=== PATIENT | female | born 1940 | race Caucasian/White ===

== ENCOUNTER 2021-11-07 12:12 | Emergency (ER) | payer BC ==
[~2021-11-07] VITALS: Ht 154.9 cm; Wt 78.5 kg
[2021-11-07] MEDS ORDERED: IV NORMAL SALINE 1000 ML BAG IV ONE ×2 (12:30)
[2021-11-07 12:44] LABS: HEMATOCRIT 38.2 % (31.2-41.9); MEAN CORPUSCULAR HEMOGLOBIN 30.4 uug (24.7-32.8); PLATELET COUNT (AUTO) 256 K/uL (179-408)
[2021-11-07 12:46] LABS: CARBON DIOXIDE 28 mmol/L (21-32); CHLORIDE 105 mmol/L (98-107); CREATININE 0.7 mg/dL (0.6-1.3); GLUCOSE 136 mg/dL (74-106); UREA NITROGEN, BLOOD 15 mg/dL (7-18)
[2021-11-07 12:55] LABS: ALANINE AMINOTRANSFERASE 34 U/L (14-59); ALKALINE PHOSPHATASE 83 U/L (50-136); ASPARTATE AMINOTRANSFERASE 17 U/L (15-37); BILIRUBIN,DIRECT 0.1 mg/dL (0.0-0.2); BILIRUBIN,TOTAL 0.5 mg/dL (0.2-1.0); TOTAL PROTEIN, SERUM 7.3 g/dL (6.4-8.2)
[2021-11-07] MEDS ORDERED: DOXY100C5 PO (13:29)
[2021-11-07] MEDS ORDERED: MECL-159 PO (13:33)
--- NOTE | 2021-11-07 14:11 | NUR ---
Patient discharged to home in stable condition. Written and verbal after care instructions given. Patient verbalizes understanding of instructions. Stressed follow up or return to ER for worsening s/s.pt deneis any headache/dizziness. Addendum: 11/07/21 at 1411 by JACOB pt walks in steady gait.
== END 2021-11-07 14:12 | disposition home or self-care (01) ==
LOC: ER 12:12
DX: R42 Dizziness and giddiness (principal); J32.9 Chronic sinusitis, unspecified; E78.5 Hyperlipidemia, unspecified; E11.9 Type 2 diabetes mellitus without complications; M48.02 Spinal stenosis, cervical region; Z91.81 History of falling
CPT/HCPCS: 36415; 70450; 72125; 84484; 85025; 93005; A4663; J7030